=== PATIENT | male | born 1995 | race Hispanic/Latino ===

== ENCOUNTER 2020-10-11 06:08 | Observation (INO) | payer MEDICARE ==
[~2020-10-11] VITALS: Ht 167.6 cm; Wt 85.7 kg
[2020-10-11 06:27] LABS: BASOPHILS % (AUTO) 0.6 % (0.0-5.0); EOSINOPHILS % (AUTO) 1.9 % (0.0-8.0); HEMATOCRIT 52.2 % (42-54); LYMPHOCYTES % (AUTO) 41.2 % (21.0-51.0); MEAN CORPUSCULAR HEMOGLOBIN 31.8 pg (27.0-33.0); MEAN CORPUSCULAR HGB CONC 33.3 g/dL (32.0-36.0); MEAN CORPUSCULAR VOLUME 95.3 fL (79-99); MONOCYTES % (AUTO) 7.8 % (3.0-13.0); NEUTROPHILS % (AUTO) 46.9 % (40.0-77.0); PLATELET COUNT (AUTO) 309 K/uL (130-400); RED BLOOD CELL COUNT(AUTO) 5.48 MIL/uL (4.50-6.20); RED CELL DISTRIBUTION WIDTH 11.9 % (11.0-15.5)
[2020-10-11] MEDS ORDERED: ONDANSETRON HCL 4 MG/2 ML VIAL ONE (06:43)
[2020-10-11] MEDS ORDERED: MORPHINE SULFATE 4 MG/1ML SYG ONE (06:43)
[2020-10-11 06:50] LABS: INR 1.13 (0.85-1.15)
[2020-10-11 06:52] LABS: CREATININE 1.6 mg/dL (0.5-1.5); PARTIAL THROMBOPLASTIN TIME 26.3 SEC (26.3-35.5); POTASSIUM 3.2 mmol/L (3.5-5.1)
[2020-10-11 06:55] LABS: ALBUMIN 4.5 g/dL (3.5-5.0); BILIRUBIN,TOTAL 0.4 mg/dL (0.2-1.0); TOTAL PROTEIN, SERUM 8.5 g/dL (6.0-8.3)
[2020-10-11] MEDS ORDERED: CEFTRIAXONE SODIUM 1 GM ONE (07:36)
[2020-10-11] MEDS ORDERED: POTASSIUM CHLORIDE 20 MEQ ERTAB PO ONE (19:52)
[2020-10-11 21:00] VITALS: BP 137/69
[2020-10-11] MEDS ORDERED: POTASSIUM CHLORIDE 20 MEQ ERTAB PO PRN (21:30)
[2020-10-11] MEDS ORDERED: LIDOCAINE HCL-MPF 1% 2ML VIAL IV PRN (21:30)
[2020-10-11] MEDS ORDERED: POTASSIUM CHLORIDE 20MEQ/100ML 100 ML IV PRN (21:30)
[2020-10-11 23:29] VITALS: BP 132/61
[2020-10-12 03:27] VITALS: BP 109/63
[2020-10-12 07:59] VITALS: BP 126/73
[2020-10-12 11:38] VITALS: BP_SYST 128; BP_SYST 130; BP_DIAS 70; BP_DIAS 86
[2020-10-12] MEDS: POTASSIUM CHLORIDE 10% ELIXIR 20 MEQ/15 ML UDCUP PO PRN ×2 (12:58→22:39)
[2020-10-12 16:17] VITALS: BP 123/71
[2020-10-12 20:00] VITALS: BP 134/86
[2020-10-13] VITALS (18 sets, daily range): BP systolic 104–126; BP diastolic 56–78
[2020-10-13] MEDS: POTASSIUM CHLORIDE 10% ELIXIR 20 MEQ/15 ML UDCUP PO PRN (02:23)
[2020-10-13] MEDS ORDERED: CEFAZOLIN SODIUM 1 GM VIAL ONE ×2 (07:03→07:28)
[2020-10-13] MEDS ORDERED: ONDANSETRON HCL 4 MG/2 ML VIAL ONE (07:14)
[2020-10-13] MEDS ORDERED: GLYCOPYRROLATE 1 MG/5 ML SYRINGE ONE (07:14)
[2020-10-13] MEDS ORDERED: PROPOFOL 10 MG/ML 20ML VIAL IV ONE ×2 (07:14→07:49)
[2020-10-13] MEDS ORDERED: ROCURONIUM 10MG/1ML SYR 10 MG/ML ML ONE (07:14)
[2020-10-13] MEDS ORDERED: SUCCINYLCHOLINE CHLORIDE 20 MG/ML 10 ML VIAL ONE ×2 (07:14→07:16)
[2020-10-13] MEDS ORDERED: MIDAZOLAM HCL 1 MG/ML 2ML VIAL ONE (07:14)
[2020-10-13] MEDS ORDERED: DEXAMETHASONE SOD PHOSPHATE 10MG/ML 1ML VIAL ONE (07:14)
[2020-10-13] MEDS ORDERED: NEOSTIGMINE 5MG/5ML SYR IV ONE (07:14)
[2020-10-13] MEDS ORDERED: LIDOCAINE PF 2% 5ML ABBOJECT ONE (07:14)
[2020-10-13] MEDS ORDERED: FENTANYL CITRATE PF 50 MCG/1 ML 2ML VIAL ONE (07:15)
[2020-10-13] MEDS ORDERED: LACTATED RINGERS 1000ML 1,000 ML IV ONE (07:18)
== END 2020-10-13 18:15 | disposition home or self-care (01) ==
LOC: EDH 06:08 → INTOOBSV 09:08 → EDHIP 09:08 → 3BH 19:41
PROVIDERS: ADMIT Surgery Plastic and Reconstructive Surgery; ATTEND Surgery Plastic and Reconstructive Surgery
DX: S01.111A Laceration without foreign body of right eyelid and periocular area, initial encounter (principal); Z20.828 Contact with and (suspected) exposure to other viral communicable diseases; F17.200 Nicotine dependence, unspecified, uncomplicated; Y04.8XXA Assault by other bodily force, initial encounter; Y93.89 Activity, other specified; Y92.89 Other specified places as the place of occurrence of the external cause
CPT/HCPCS: 11042; 12051; 36415; 70450; 70486; 71045; 72125; 80053; 82948; 85025; 85610; 85730; 87426; 96360; 96361; 99285; A4216; A4222; A4223; G0378 ×56; J0330 ×2; J0690 ×2; J0696; J1100; J2001; J2250; J2270; J2405 ×2; J2704 ×2; J2710; J3010; J3490; J7120; U0003

== ENCOUNTER 2021-03-15 23:16 | Emergency (ER) | payer MEDICARE ==
[~2021-03-15] VITALS: Ht 165.1 cm; Wt 88.0 kg
== END 2021-03-16 06:35 | disposition home or self-care (01) ==
LOC: EDH 23:16
DX: N48.89 Other specified disorders of penis (principal); Z20.2 Contact with and (suspected) exposure to infections with a predominantly sexual mode of transmission
CPT/HCPCS: 99281

== ENCOUNTER 2021-10-09 15:00 | Emergency (ER) | payer MEDICARE ==
[~2021-10-09] VITALS: Ht 165.1 cm; Wt 86.2 kg
[2021-10-09] MEDS ORDERED: CEFTRIAXONE 1G VIAL IM ONE (15:30)
[2021-10-09] MEDS ORDERED: AZITHROMYCIN 250 MG TABLET PO ONE ×2 (15:30→15:45)
[2021-10-09] MEDS ORDERED: CEFTRIAXONE 1G VIAL ONE (15:44)
[2021-10-09 15:50] LABS: APPEARANCE,URINE Clear (CLEAR); BILIRUBIN,URINE Negative (NEGATIVE); COLOR,URINE Yellow (YELLOW); GLUCOSE, URINE (UA) Negative (NEGATIVE); KETONES,URINE Negative (NEGATIVE); LEUKOCYTE ESTERASE ,URINE Negative (NEGATIVE); NITRATE,URINE Negative (NEGATIVE); OCCULT BLOOD,URINE Negative (NEGATIVE); PH,URINE 6.5 (5.0-8.0); PROTEIN,URINE Trace mg/dL (NEGATIVE)
[2021-10-09 16:01] LABS: BACTERIA,URINE None Seen /HPF (None Seen); MUCUS,URINE Few LPF (None Seen); RBC,URINE None Seen /HPF (0-1); SQUAMOUS EPITHELIAL CELL,UR None Seen /HPF (0-2); WBC,URINE None Seen /HPF (0-1)
[2021-10-09 16:47] VITALS: BP 122/76
== END 2021-10-09 16:50 | disposition home or self-care (01) ==
LOC: EDH 15:00
DX: A64 Unspecified sexually transmitted disease (principal)
CPT/HCPCS: 81001; 87486; 87797; 96372; 99283; J0696

== ENCOUNTER 2021-10-17 17:14 | Emergency (ER) | payer MEDICARE ==
[~2021-10-17] VITALS: Ht 165.1 cm; Wt 86.2 kg
[2021-10-17] MEDS ORDERED: IBUPROFEN 600 MG TABLET PO ONE (18:00)
[2021-10-17] MEDS ORDERED: GUAIFENESIN-CODEINE 5 ML SYRUP PO ONE (18:00)
[2021-10-17] MEDS ORDERED: IBUP-2070 PO (18:36)
[2021-10-17] MEDS ORDERED: ACET-66 PO (18:36)
[2021-10-17] MEDS ORDERED: BENZ-39 PO (18:36)
[2021-10-17] MEDS ORDERED: OSEL75 PO (18:36)
[2021-10-17] MEDS ORDERED: OSELTAMIVIR PHOSPHATE 75 MG CAP PO SCH (19:25)
[2021-10-17] MEDS ORDERED: IBUPROFEN 600 MG TABLET ONE (19:35)
[2021-10-17] MEDS ORDERED: GUAIFENESIN-CODEINE 5 ML SYRUP ONE (19:35)
[2021-10-17 19:50] VITALS: BP 124/77
== END 2021-10-17 19:53 | disposition home or self-care (01) ==
LOC: EDH 17:14
DX: U07.1 COVID-19 (principal); J10.1 Influenza due to other identified influenza virus with other respiratory manifestations; Z79.1 Long term (current) use of non-steroidal anti-inflammatories (NSAID)
CPT/HCPCS: 87635; 87804 ×2; 99284; C9803

== ENCOUNTER 2025-05-19 16:42 | Emergency (ER) | payer SELFPAY ==
[~2025-05-19] VITALS: Ht 165.1 cm; Wt 86.2 kg
[~2025-05-19 16:42] MED LIST: ACET-66 PO; BENZ-39 PO; IBUP-1492 PO; OSEL75 PO
[2025-05-19] MEDS ORDERED: AMOX1TAB16 PO (18:43)
--- NOTE | 2025-05-19 18:46 | ERN ---
General Chief Complaint: Laceration/Avulsion Stated Complaint: LAC TO RLE Time Seen by MD: 17:17 Time Seen by Midlevel: 17:17 Source: patient History of Present Illness Initial Comments The patient is a 29-year-old male presenting to the emergency department with a laceration to the right lower leg. Tetanus is not up-to-date. Allergies: Coded Allergies: No Known Drug Allergies (Unverified Allergy, Unknown, 10/11/20) Home Meds Active Scripts Acetaminophen (Tylenol) 500 Mg Tab, 500 MG PO TID for 5 Days, #24 TAB Prov:FLIP PENA BANDER 10/17/21 Benzonatate (Tessalon Perles) 100 Mg Cap, 100 MG PO TID for 5 Days, #15 CAP Prov:FLIP PENA BANDER 10/17/21 Ibuprofen (Ibuprofen) 600 Mg Tablet, 600 MG PO Q6H PRN for PAIN for 5 Days, #15 TAB Prov:FLIP PENA BANDER 10/17/21 Oseltamivir Phosphate (Tamiflu) 75 Mg Cap, 75 MG PO BID for Influenza A for 5 Days, #10 CAP Prov:FLIP PENA BANDER 10/17/21 Past Medical History Past Medical History: No Pertinent History Past Surgical History: None Surgical History Other: RT EYE SX Social History Social History: ETOH, Lives with family ROS Dictation CONSTITUTIONAL: Negative except for HPI HEAD/FACE: Negative except for HPI EENT: Negative except for HPI RESPIRATORY: Negative except for HPI GASTROINTESTINAL/ABDOMINAL: Negative except for HPI GENITOURINARY: Negative except for HPI MUSCULOSKELETAL: Negative except for HPI INTEGUMENTARY: Negative except for HPI NEUROLOGICAL/PSYCH: Negative except for HPI HEMATOLOGIC/LYMPHATIC: Negative except for HPI All Systems Negative, Except as noted above. 13 point review of systems assessed and all negative except for above. Physical Exam Physical Exam Dictation Vital Signs reviewed General Appearance: Alert, oriented x 3, no acute distress, well developed, nourished. Head and Face: non-traumatic. Eyes: PERRL, pink conjunctivas, eyelid no trauma, anterior chamber with arcus senilis. Ears: Pinnas intact and no signs of trauma or erythema ear canals clear and no discharge TM no erythema Nose: No discharge, no bleeding. Oropharynx: Mouth normal, tongue pink, pharynx clear,no erythema, tonsils no exudates, no abscesses noted, mucous membrane moist Neck: Supple, non-tender, no thyromegaly, no masses, no JVD, no bruits Breast:Deferred Chest:No tenderness, no crepitus, no paradoxical movement, no retractions Lungs:Clear, well-ventilated, symmetric, no rales, no wheezing, no rhonchi, no stridor, good breath sounds bilaterally Heart: Regular rate, regular rhythm, no murmur, no gallops Vascular: no peripheral edema, Abdomen: Soft, positive bowel sounds, nondistended, no guarding, nontender, no rebound, no masses no hepatomegaly, no splenomegaly, no Bradshaw's sign, no hernias. Rectal: Deferred Genital: Deferred Neurological: Normal speech, motor function intact, sensory function intact Musculoskeletal: Neck nontender, full range of motion, back nontender, full range of motion, Extremities: nontender, full range of motion Skin: 5 cm crescent shaped laceration to the lateral aspect of the right lower leg Lymphatic: Deferred MDM MDM: Differential diagnosis: Laceration, abrasion, contusion There are no social concerns with this patient. Prescription drug management Prescriptions will include: Augmentin Medical management and examination interpretation discussions were had by me with other qualified healthcare professionals as indicated for the patient's care. ED Course Vital Signs Date Time Temp Pulse Resp B/P (MAP) Pulse Ox O2 Delivery O2 Flow Rate FiO2 05/19/25 17:27 98.1 72 16 125/80 98 Room Air* 0 21 05/19/25 16:43 98.2 75 16 126/81 99 Room Air 0 Procedure Dictation Procedure Name: Laceration Repair Indication: Reduce risk of infection Location: 5 cm crescent shaped laceration to the lateral aspect of the right tib-fib area Pre-Procedure Diagnosis: Laceration Post-Procedure Diagnosis: Repaired Laceration Informed consent was obtained before procedure started. PROCEDURE: The appropriate timeout was taken. The area was prepped and draped in the usual sterile fashion. Local anesthesia was achieved using 5cc of Lidocaine 1% without epinephrine. The wound was copiously irrigated. 13 5-0 Ethilon simple interrupted sutures were placed. Estimated blood loss was less than 0.5 mL. A dressing was applied to the area and anticipatory guidance, as well as standard post-procedure care, was explained. Return precautions are given. The patient tolerated the procedure well without complications. Follow-up visit set for suture removal and evaluation of the laceration. DX & DISP Disposition: Discharge Departure Impression: Primary Impression: Laceration of lower leg, right Condition: Stable Scripts Amoxicillin/Potassium Clav (Amox Tr-K Clv 875-125 mg Tab) 875 Mg-125 Mg Tablet 1 EACH PO BID for 5 Days, #10 TAB 0 Refills Prov: PEDRO LUIS AGARWAL 05/19/25 Referrals: SELF,REFERRAL (PCP) I have reviewed the case, and I agree with, Diagnosis and Plan I performed the substantive portion of the visit. I have reviewed and personally made and approve the management plan that is documented in the note by myself or the LEONIDES. I acknowledge for responsibility for the patient's management plan. PEDRO LUIS AGARWAL May 19, 2025 18:46
--- NOTE | 2025-05-19 18:48 | NUR ---
14 SUTURES USED TO CLOSE 2 CRESENT SHAPED LACERATIONS PA CLOSED WOUND AND BANDAGED PT PT PROVISED INSTRUCTION ON WOUND CARE AND 7-10 DAYS FOR SUTURE REMOVAL
[2025-05-19 19:09] VITALS: BP 127/76; PULSE 70; RESP 16; TEMP 98.1; O2SAT 98
== END 2025-05-19 19:12 | disposition home or self-care (01) ==
LOC: EDH 16:42
DX: S81.811A Laceration without foreign body, right lower leg, initial encounter (principal); W26.8XXA Contact with other sharp object(s), not elsewhere classified, initial encounter; Y93.89 Activity, other specified; Y92.89 Other specified places as the place of occurrence of the external cause; Y99.8 Other external cause status
CPT/HCPCS: 99284; 90714; 90471; 12002; 96372; J0696

== ENCOUNTER 2025-08-08 08:47 | Emergency (ER) | payer SELFPAY ==
[~2025-08-08] VITALS: Ht 160 cm; Wt 86.2 kg
[~2025-08-08 08:47] MED LIST changes: +AMOX1TAB16 PO
[2025-08-08 08:49] VITALS: BP 126/71; PULSE 70; RESP 20; TEMP 98
[2025-08-08] MEDS ORDERED: NAPR-1194 PO (09:16)
--- NOTE | 2025-08-08 09:17 | ERN ---
General Chief Complaint: Arm Swelling/Redness Stated Complaint: RT ARM PAIN Time Seen by MD: 09:03 Source: patient History of Present Illness Initial Comments Patient is a coming in complaining of right wrist pain. Per patient this has been ongoing for a couple of days. He notices that when he wakes up the pain is more significant in his right wrist. That has some tenderness in his right elbows well. At the moment of evaluation he states that his swelling has gone down. Allergies: Coded Allergies: No Known Drug Allergies (Unverified Allergy, Unknown, 10/11/20) Home Meds Active Scripts Amoxicillin/Potassium Clav (Amox Tr-K Clv 875-125 mg Tab) 875 Mg-125 Mg Tablet, 1 EACH PO BID for 5 Days, #10 TAB 0 Refills Prov:PEDRO LUIS AGARWAL PAC 05/19/25 Acetaminophen (Tylenol) 500 Mg Tab, 500 MG PO TID for 5 Days, #24 TAB Prov:FLIP PENA [employer]ESSOR 10/17/21 Benzonatate (Tessalon Perles) 100 Mg Cap, 100 MG PO TID for 5 Days, #15 CAP Prov:FLIP PENA [employer] ASSESSOR 10/17/21 Ibuprofen (Ibuprofen) 600 Mg Tablet, 600 MG PO Q6H PRN for PAIN for 5 Days, #15 TAB Prov:FLIP PENA [employer] SAL[employer] ASSESSOR 10/17/21 Oseltamivir Phosphate (Tamiflu) 75 Mg Cap, 75 MG PO BID for Influenza A for 5 Days, #10 CAP Prov:FLIP PENA [employer] SAL[employer] ASSESSOR 10/17/21 Past Medical History Past Medical History: No Pertinent History Past Surgical History: None Surgical History Other: RT EYE SX Social History Social History: ETOH, Lives with family ROS Dictation CONSTITUTIONAL: No chills, no fever, no weakness, no diaphoresis, no malaise. HEAD/FACE: No signs of trauma. EENT: No eye pain, no blurred vision, no tearing, no double vision, no ear pain, no ear discharge, no nose pain, no nasal congestion, no throat pain, no throat swelling, no mouth pain. RESPIRATORY: No cough, no orthopnea, no SOB, no stridor, no wheezing. CARDIOVASCULAR: No chest pain, no edema, no palpitations, no syncope. GASTROINTESTINAL/ABDOMINAL: No abdominal pain, no constipation, no diarrhea, no nausea, no vomiting. GENITOURINARY: No abnormal discharge, no dysuria, no frequent urination, no hematuria. No complaints of pain in the genitals. MUSCULOSKELETAL: No back pain, no gout, joint pain, no joint swelling, muscle pain, no muscle stiffness, no neck pain. INTEGUMENTARY: No change in color, no change in hair/nails, no dryness, no lesion, no lumps, no rash. NEUROLOGICAL/PSYCH: No anxiety, not depressed, no emotional problem, no headache, no numbness, no pre-existing deficit, no history of seizures, no tremors, no weakness. HEMATOLOGIC/LYMPHATIC: Not anemic, no history of blood clots, no apparent bleeding, no bruising, glands not swollen. All Systems Negative, Except as Noted. Physical Exam Physical Exam Dictation VITAL SIGNS: Reviewed. GENERAL APPEARANCE: Alert, oriented x3, no acute distress, obese. HEAD AND FACE: Non-traumatic. EYES: PERRL, pink conjunctivas, eyelid no trauma, anterior chamber clear. EARS: Pinnas intact and no signs of trauma or erythema. Ear canals clear and no discharge. TMs no erythema. NOSE: No discharge, no bleeding. OROPHARYNX: Mouth normal, teeth no caries, tongue pink. Pharynx clear, no erythema. Tonsils no exudates, no abscesses noted. Mucous membrane moist. NECK: Supple, non-tender, no thyromegaly, no masses, no JVD, no bruits. BREAST: Deferred. CHEST: No tenderness, no crepitus, no paradoxical movement, no retractions. LUNGS: Clear, well-ventilated, symmetric, no rales, no wheezing, no rhonchi, no stridor, good breath sounds bilaterally. HEART: Regular rate, regular rhythm, no murmur, no gallops. VASCULAR: No peripheral edema. ABDOMEN: Soft, positive bowel sounds, nondistended, no guarding, nontender, no rebound, no masses no hepatomegaly, no splenomegaly, no Bradshaw's sign, no hernias. RECTAL: Deferred. GENITAL: Deferred. NEUROLOGICAL: Normal speech, gross motor function intact, gross sensory function intact. MUSCULOSKELETAL: Neck nontender, full range of motion, back nontender, full range of motion. Reverse Phalen test positive EXTREMITIES: Nontender, full range of motion. Right wrist tenderness on palpat ion, right carpal tunnel tenderness on palpation SKIN: Color pink, dry, no turgor, no rash, no lacerations, no abrasions, no co ntusions. LYMPHATICS: Deferred. Results Laboratory and Microbiology Labs Reviewed?: Yes MDM MDM: Differential diagnosis: Carpal tunnel syndrome, wrist sprain, Rationale: Tests considered and ordered secondary to shared decision making include: Previous outside records reviewed: Old ER visits. Risk of complication and/or morbidity or mortality of patient management: None Medications-Per medication reconciliation Need for hospitalization: Patient does not meet criteria for hospitalization. Need for emergency major/minor surgery: No Patient is a 29-year-old male coming In complaining of right wrist pain. On physical exam that has tenderness to palpation to the right carpal tunnel. Patient was positive on the Phalen test as well as reverse Phalen. Wrist splint was applied and anti-inflammatories were given. Patient will be discharged in stable condition I did advised him appropriate follow up with PCP for long-term management of carpal tunnel syndrome. ED Course Orders Procedure Category Date Status Time Ketorolac PHA 08/08/25 Verified Tromethamine 30mg/Ml 09:30 Thumb & Wrist NEGRITO.ER 08/08/25 Verified Immobilizer 09:11 Vital Signs Date Time Temp Pulse Resp B/P (MAP) Pulse Ox O2 Delivery O2 Flow Rate FiO2 08/08/25 08:49 98.1 70 20 126/71 99 Room Air 0 DX & DISP Disposition: Discharge Departure Impression: Primary Impression: Carpal tunnel syndrome of right wrist Condition: Stable Scripts Naproxen (Naproxen) 500 Mg Tablet 1 TAB PO BID for pain for 7 Days, #14 TAB 0 Refills Prov: INNA GALINDO MD 08/08/25 Referrals: SELF,REFERRAL (PCP) ROB CAMACHO MD, LUIS A MD Time of Disposition: 09:16 INNA GALINDO MD Aug 08, 2025 09:17
--- NOTE | 2025-08-08 09:19 | NUR ---
WRIST AND THUMB IMMOBILIZER APPLIED TO RT WRIST, PT TOLERATED WELL.
== END 2025-08-08 09:36 | disposition home or self-care (01) ==
LOC: EDH 08:47
DX: G56.01 Carpal tunnel syndrome, right upper limb (principal)
CPT/HCPCS: 99283; 29125; 96372; J1885